=== PATIENT | male | born 1985 | race Caucasian/White ===

== ENCOUNTER 2018-09-05 00:29 | Emergency (ER) | payer OTHER ==
[~2018-09-05] VITALS: Ht 167.6 cm; Wt 68.0 kg
[2018-09-05 00:39] VITALS: Ht 167.6 cm; Wt 68.0 kg
[2018-09-05 00:57] VITALS: BP 148/104
== END 2018-09-05 00:57 | disposition other institution (70) ==
LOC: ED 00:29
DX: Z02.89 Encounter for other administrative examinations (principal); F10.129 Alcohol abuse with intoxication, unspecified; Y90.9 Presence of alcohol in blood, level not specified
CPT/HCPCS: 82962